=== PATIENT | female | born 1990 | race Caucasian/White ===

== ENCOUNTER 2021-03-17 16:36 | Outpatient (CLI) | payer OTHER, SELFPAY ==
[2021-03-17 17:58] LABS: Beta HCG Quantitative 122.86 mIU/ML
== END 2021-03-17 16:37 | disposition home or self-care (01) ==
LOC: ANHLAB 16:44
PROVIDERS: PCP Family Medicine; Visit Provider Obstetrics & Gynecology
DX: N92.6 Irregular menstruation, unspecified (principal)
CPT/HCPCS: 36415; 84702

== ENCOUNTER 2021-03-19 16:25 | Outpatient (CLI) | payer OTHER, SELFPAY ==
[2021-03-19 17:22] LABS: Beta HCG Quantitative 51.18 mIU/ML
== END 2021-03-19 16:26 | disposition home or self-care (01) ==
LOC: ANHLAB 16:27
PROVIDERS: PCP Family Medicine; Visit Provider Obstetrics & Gynecology
DX: O20.0 Threatened abortion (principal)
CPT/HCPCS: 36415; 84702

== ENCOUNTER 2021-03-27 16:51 | Outpatient (RCR) | payer OTHER, SELFPAY ==
[2021-03-27 17:41] LABS: Beta HCG Quantitative < 2.39 mIU/ML
== END 2021-06-25 23:59 | disposition home or self-care (01) ==
LOC: ANHLAB 16:51
PROVIDERS: PCP Family Medicine; Visit Provider Obstetrics & Gynecology
DX: O20.0 Threatened abortion (principal); Z3A.00 Weeks of gestation of pregnancy not specified
CPT/HCPCS: 36415; 84702

== ENCOUNTER 2021-11-29 09:22 | Outpatient (RCR) | payer OTHER, SELFPAY | END 2022-02-25 23:59 | disposition home or self-care (01) | LOC: ANHLAB 09:22 | PROVIDERS: PCP Family Medicine; Visit Provider Obstetrics & Gynecology | DX: O20.0 Threatened abortion (principal); Z3A.00 Weeks of gestation of pregnancy not specified | CPT/HCPCS: 36415; 84702 ==

== ENCOUNTER 2021-12-25 01:17 | Day surgery (SDC) | payer OTHER, SELFPAY ==
[2021-12-22 15:14] VITALS: BMI 32.5
--- NOTE | 2021-12-22 15:18 | PC.NURSE ---
Report to the Outpatient Waiting Room, entrance under the green pavilion located off [facility], at time 0930 on date 12/25/21. Planned Procedure Time: 1130. Time changes happen often and if your time is changed the preop area will call you the afternoon before. - You and your visitor will be asked to self-screen and do not enter if you have any COVID symptoms. - We encourage only one visitor and NO visitors under age 16 are allowed at this time. Your visitor will receive communication by the phone number that is given day of service. - The patient visitor is requested to social distance or may leave the building when not with patient due to restrictions. - A mask is required within the hospital. Patients may have clear liquids (water, carbonated beverages, clear teas, apple juice) until 3 hours prior to surgery with a maximum of 20 ounces. - No food from midnight until time of surgery Take the following medications with a SIP of water the morning of surgery: N/A Medications to discontinue per physician: N/A Date to take last dose: N/A Please no make-up, nail yi, hairspray, perfume, deodorant, or body powder the day of surgery. No jewelry (including any body piercings) or valuables the day of surgery, leave them at home. Please take a shower or bath the night before, or the morning of, surgery with an antibacterial soap. Wear comfortable, loose fitting clothing. - Jewelry must be removed prior to entering the operating room. Rings and piercings that are not removed may be cut off. - The hospital will not accept responsibility for valuables. - Please leave all valuables, including medications, at home the day of surgery. If you are going home after surgery, a licensed dump truck driver off highway must drive you home. - NO public transportation without another adult. - We recommend that an adult stay with you for 24 hours following discharge. - We also recommend that you do not drive, make important decision, drink alcoholic beverages, or take any drugs that were not prescribed by your health care provider for at least 24 hours after your discharge time. Follow any additional instructions given to you from your surgeon. If you or anyone in your household have experienced Covid symptoms in the past week, please notify your surgeon or the nurse liaison at the phone number below for possible testing. Telephone instructions given to PT - STAN GUERRA and asked if any additional questions and then verbalized understanding. Patient advised to call surgeon office or pre surgery nurse liaison [phone] if any additional questions.
--- NOTE | 2021-12-24 10:35 | P.PNAN_ITS ---
Anes - Initial Pre Proc Eval Procedure: Operation Date: 12/25/21 11:30 Proposed Procedures p Suction Dilation and Curettage - Ilir Dimas MD Date/Time: 12/24/21 10:35 Surgeon: Ilir Dimas MD Pre Op Diagnosis: Missed Ab Patient Data Age: 31 Gender: F Height: 1.75 m Weight: 99.8 kg Allergies Allergy/AdvReac Type Severity Reaction Status Date / Time No Known Allergies Allergy Verified 12/22/21 15:13 Home Medications Medication Instructions Recorded Confirmed Type No Home Medications 12/22/21 12/22/21 History Patient hx anesthesia problems: none Family hx anesthesia problems: none Results Review: All pre-operative results and documents have been reviewed as part of the pre- operative evaluation. [facility] Past Medical History Medical History Encounter for IUD insertion 01/25/18 Jessica insertion 01/13/21 Jessica removal Headache Healthy adult Migraines Surgical History Surgical History H/O right knee surgery age 13 History of orthopedic surgery age 4 broken femur repaired Family History Family History Grandparent Diabetes mellitus paternal grandmother Hypertension paternal grandmother Sibling Hypertension brother Other Breast cancer maternal aunt paternal aunt Social History Social History Smoking status: Never smoker Alcohol intake: current Drinks per week: 1 Alcohol use details: RARE Substance use: never Substance use type: does not use Living arrangements: with family Additional living arrangements comments: spouse 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 Gender identity (if verbalized by the patient): Female Sexual Orientation (if Verbalized by the Patient): Straight or Heterosexual Spiritual care concerns: No Anes - Eval Final PreProcedure Day of Procedure 12/24/21 10:35 Patient weight: obese Heart: regular rate and rhythm Lungs: clear to auscultation Airway: Mallampati scale class II Neurological: alert and oriented Last oral intake: >/= 8 hours ASA classification: II Emergent: no Anesthetic plan: proceed Anesthesia type and monitoring: general GIVS and standard monitoring Results Review: All pre-operative results and documents have been reviewed as part of the pre- operative evaluation. Informed Consent: The patient's anesthetic plan and its attendant risks and benefits were discussed with the patient/family/POA. Questions were solicited and answers provided to the satisfaction of the patient/family/POA.
--- NOTE | 2021-12-25 07:19 | WPDHPUPDATE1 ---
History and Physical Update Update Date/Time: 12/25/21 07:19 History and Physical has been reviewed, including an updated exam of the patient. There are NO changes in the patient's condition. Risks, benefits, and alternatives have been discussed and questions answered. Patient agrees to proceed with procedure.
[2021-12-25 10:28] VITALS: BP 124/82; PULSE 92; RESP 14; TEMP 36.3; O2SAT 100
[2021-12-25] MEDS: LACTATED RINGERS 1,000 ML 30 ML IV CONT (10:35)
[2021-12-25] MEDS: ACETAMINOPHEN 500 MG TABLET 1000 MG PO (10:35)
[2021-12-25] MEDS: KETOROLAC 15 MG/ML VIAL (*BKC) IV PUSH (13:27)
--- NOTE | 2021-12-25 13:28 | W.PM.PROC2 ---
Procedure Note - Detailed Date of Procedure 12/25/21 Pre-op Diagnosis First trimester missed Post-op Diagnosis Same Procedure Performed 1. Suction curettage Surgeon Ilir Dimas MD Anesthesia MAC Findings Moderate amount of retained products of conception Description of Procedure Patient prepped draped usual manner for this procedure cervix was dilated to allow a 9mm suction curette to be placed. This was placed with a moderate amount of tissue removed. Sharp curette was then undertaken with no further tissue or bleeding noted. Patient was sent to recovery room in stable condition Estimated Blood Loss 100 Drains No Packing No Pathology Yes Complications No immediate complications Condition Stable Disposition PACU [facility] Billing Surgery - Charge Forward: Surgery Billing
[2021-12-25 13:35] VITALS: BP 137/94; PULSE 83; RESP 14; O2SAT 99
[2021-12-25 14:05] VITALS: BP 133/86; PULSE 53; RESP 16; O2SAT 100
[2021-12-25] MEDS: oxyCODONE HCL (*CRX) 5 MG TAB IR PO (14:07)
[2021-12-25 14:15] VITALS: BP 123/86; PULSE 53; RESP 16; O2SAT 100
== END 2021-12-25 14:30 | disposition home or self-care (01) ==
PROVIDERS: PCP Family Medicine; Visit Provider Obstetrics & Gynecology
PROC: (CPT 59820; principal; 2021-12-25 11:30)
DX: O02.1 Missed abortion (principal); Z3A.00 Weeks of gestation of pregnancy not specified
CPT/HCPCS: 59820; 36415; 85461; 88305; A9270; J1100; J1885; J2250; J2405; J2704; J3010; J7120

== ENCOUNTER 2023-03-26 09:21 | Outpatient (CLI) | payer OTHER, SELFPAY ==
[2023-03-26 09:51] LABS: Alanine Aminotransferase 20 U/L (6-35); Albumin Level 3.6 g/dL (3.5-5.1); Alkaline Phosphatase 96 U/L (38-126); Anion Gap 5 mmol/L (8-16); Aspartate Amino Transferase 25 U/L (14-36); Bilirubin,Total 0.9 mg/dL (0.2-1.3); Blood Urea Nitrogen 7 mg/dL (7-17); Calcium 8.7 mg/dL (8.4-10.2); Carbon Dioxide 28 mmol/L (22-30); Chloride 105 mmol/L (98-107); Estimated Glomerular Filt Rate > 60; Glucose 88 mg/dL (65-110); Sodium 138 mmol/L (137-145)
[2023-03-26 10:05] LABS: Hemoglobin A1C 5.3 % (<5.7)
[2023-03-26 10:44] LABS: Free T4 Free Thyroxine 1.32 ng/mL (0.78-2.19)
[2023-03-31 07:22] LABS: Progesterone 0.5 ng/mL (***); Prolactin 8.9 ng/mL (***)
== END 2023-03-26 09:22 | disposition home or self-care (01) ==
LOC: ANHLAB 09:22
PROVIDERS: PCP Family Medicine; Visit Provider Obstetrics & Gynecology
DX: N92.6 Irregular menstruation, unspecified (principal)
CPT/HCPCS: 36415; 80053; 83036; 84144; 84146; 84439; 84443

== ENCOUNTER 2023-06-03 10:59 | Outpatient (CLI) | payer OTHER, SELFPAY | END 2023-06-03 11:00 | disposition home or self-care (01) | LOC: ANHLAB 11:21 | PROVIDERS: PCP Family Medicine; Visit Provider Obstetrics & Gynecology | DX: O20.0 Threatened abortion (principal) | CPT/HCPCS: 36415; 84702 ==

== ENCOUNTER 2023-06-07 07:14 | Outpatient (CLI) | payer OTHER, SELFPAY | END 2023-06-07 07:15 | disposition home or self-care (01) | LOC: ANHLAB 07:15 | PROVIDERS: PCP Family Medicine; Visit Provider Obstetrics & Gynecology | DX: O20.0 Threatened abortion (principal) | CPT/HCPCS: 36415; 84702 ==

== ENCOUNTER 2023-06-09 08:42 | Outpatient (CLI) | payer OTHER, SELFPAY ==
--- NOTE | ~2023-06-09 | US_ITS ---
EXAMINATION: US OB <=14 wk fetus w TV DATE: 06/09/2023 09:12 INDICATION: Threatened . TECHNIQUE: Real-time transabdominal and transvaginal pelvic ultrasound was performed. COMPARISON: None. FINDINGS: TRANSABDOMINAL ULTRASOUND: The uterus measures 8.2 x 6.0 x 4.6 cm. TRANSVAGINAL ULTRASOUND: There is an intrauterine gestational sac. A yolk sac is identified. The fet al crown rump length measures 6 mm, which correlates with an estimated gestational age of 6 weeks and 3 day(s) (+/-) 4 day(s). heart motion is identified measuring 141 beats per minute (bpm) by M- mode Doppler. The right ovary measures 2.2 x 2.4 x 2.6 cm. The left ovary measures 4.0 x 2.4 x 2.4 cm . There is no free fluid in the pelvis. IMPRESSION: 1. Single living intrauterine gestation with estimated date of delivery of 01/30/2024. Reviewed, dictated and finalized at location A. IMPRESSION: 1. Single living intrauterine gestation with estimated date of delivery of .
== END 2023-06-09 08:43 ==
LOC: GOSHIMG 08:43
PROVIDERS: PCP Obstetrics & Gynecology; Visit Provider Obstetrics & Gynecology
DX: O20.0 Threatened abortion (principal)
CPT/HCPCS: 76801; 76817

== ENCOUNTER 2023-06-29 08:17 | Outpatient (CLI) | payer OTHER, SELFPAY ==
[2023-06-29 09:51] LABS: Basophils Absolute Auto 0.1 K/mm3 (0.0-0.1); Basophils Percent Auto 0.7 % (0.2-1.2); Eosinophils Absolute Auto 0.1 K/mm3 (0-0.3); Eosinophils Percent Auto 1.7 % (0-4.4); Hematocrit 43.2 % (37.0-47.0); Hemoglobin 14.3 g/dL (12.0-15.0); Immature Granulocyte Absolute 0.03 K/mm3 (0.00-0.031); Immature Granulocyte Percent A 0.4 % (0-0.5); Lymphocytes Absolute Auto 1.68 K/mm3 (0.9-3.2); Lymphocytes Percent Auto 23.6 % (18.3-44.2); Mean Corpuscular HGB Conc 33.1 g/dl (32-36); Mean Corpuscular Hemoglobin 32.5 pg (26-34); Mean Corpuscular Volume 98.2 fl (80-100); Monocytes Absolute Auto 0.3 K/mm3 (0.1-0.6); Monocytes Percent Auto 4.1 % (2.6-8.5); Neutrophils Percent Auto 69.5 % (45.5-73.1); Platelet Count Result 312 k/mm3 (150-375); Red Cell Distribution Width 11.9 % (11.5-14.5); White Blood Count 7.1 K/mm3 (4.5-10.0)
[2023-06-29 10:08] LABS: Glucose 1 Hour PP 50gm Dose 157 mg/dL
[2023-06-29 10:38] LABS: HIV 1/2 Ab P24 Ag Result Negative (Negative)
[2023-06-29 10:58] LABS: Hepatitis B Surface Antigen Negative (Negative)
[2023-06-30 14:39] LABS: CMV IgG Antibody >10.00 U/mL
== END 2023-06-29 08:18 | disposition home or self-care (01) ==
PROVIDERS: Visit Provider Obstetrics & Gynecology
DX: N91.2 Amenorrhea, unspecified (principal)
CPT/HCPCS: 36415; 82947; 85025; 86644; 86703; 86747; 86762; 86787; 86850; 86900; 86901; 87086; 87088; 87147; 87340; G0432

== ENCOUNTER 2023-07-05 08:16 | Outpatient (CLI) | payer OTHER, SELFPAY ==
[2023-07-05 08:48] LABS: Glucose Fasting Gestational 96 mg/dL (>/=95)
[2023-07-05 10:12] LABS: Glucose 1 Hour Gest 144 mg/dL (>/=180)
[2023-07-05 11:39] LABS: Glucose 2 Hour Gest 131 mg/dL (>/= 155)
[2023-07-05 12:20] LABS: Glucose 3 Hour Gest 87 mg/dL (>/=140)
[2023-07-05 14:29] LABS: Rapid Plasma Reagin Non-Reactive (NonReactive)
== END 2023-07-05 08:17 | disposition home or self-care (01) ==
PROVIDERS: Visit Provider Obstetrics & Gynecology
DX: N91.2 Amenorrhea, unspecified (principal); R73.09 Other abnormal glucose
CPT/HCPCS: 36415; 82951; 82952; 86592

== ENCOUNTER 2023-11-09 09:19 | Outpatient (CLI) | payer OTHER, SELFPAY ==
[2023-11-09 10:43] LABS: Basophils Absolute Auto 0.1 K/mm3 (0.0-0.1); Basophils Percent Auto 0.5 % (0.2-1.2); Eosinophils Absolute Auto 0.1 K/mm3 (0-0.3); Eosinophils Percent Auto 0.7 % (0-4.4); Hemoglobin 12.8 g/dL (12.0-15.0); Immature Granulocyte Absolute 0.23 K/mm3 (0.00-0.031); Immature Granulocyte Percent A 2.5 % (0-0.5); Lymphocytes Absolute Auto 1.62 K/mm3 (0.9-3.2); Lymphocytes Percent Auto 17.3 % (18.3-44.2); Mean Corpuscular HGB Conc 32.8 g/dl (32-36); Mean Corpuscular Hemoglobin 32.9 pg (26-34); Mean Corpuscular Volume 100.3 fl (80-100); Mean Platelet Volume 9.8 fl (7.4-10.4); Monocytes Absolute Auto 0.4 K/mm3 (0.1-0.6); Monocytes Percent Auto 4.5 % (2.6-8.5); Neutrophils Percent Auto 74.5 % (45.5-73.1); Platelet Count Result 289 k/mm3 (150-375); Red Blood Count 3.89 M/mm3 (4.2-5.4); Red Cell Distribution Width 13.6 % (11.5-14.5); White Blood Count 9.4 K/mm3 (4.5-10.0)
[2023-11-09 10:52] LABS: Glucose 1 Hour PP 50gm Dose 164 mg/dL
[2023-11-09 11:32] LABS: HIV 1/2 Ab P24 Ag Result Negative (Negative)
[2023-11-09 14:53] LABS: Rapid Plasma Reagin Non-Reactive (NonReactive)
== END 2023-11-09 09:20 | disposition home or self-care (01) ==
LOC: ANHLAB 09:20
PROVIDERS: Visit Provider Obstetrics & Gynecology
DX: Z34.90 Encounter for supervision of normal pregnancy, unspecified, unspecified trimester (principal)
CPT/HCPCS: 36415; 82947; 85025; 86592; 86703; G0432

== ENCOUNTER 2023-11-22 08:33 | Outpatient (CLI) | payer OTHER, SELFPAY ==
[2023-11-22 09:09] LABS: Glucose Fasting Gestational 83 mg/dL (>/=95)
[2023-11-22 10:42] LABS: Glucose 1 Hour Gest 186 mg/dL (>/=180)
[2023-11-22 11:51] LABS: Glucose 2 Hour Gest 108 mg/dL (>/= 155)
[2023-11-22 12:49] LABS: Glucose 3 Hour Gest 51 mg/dL (>/=140)
== END 2023-11-22 08:34 | disposition home or self-care (01) ==
LOC: ANHLAB 08:34
PROVIDERS: Visit Provider Obstetrics & Gynecology
DX: R73.09 Other abnormal glucose (principal)
CPT/HCPCS: 36415; 82951; 82952

== ENCOUNTER 2024-01-20 07:33 | Inpatient (IN) | payer OTHER, SELFPAY ==
[2024-01-20] VITALS (197 sets, daily range): BP systolic 83–176; BP diastolic 43–159; PULSE 30–176; RESP 18; TEMP 36.6–37.6; O2SAT 77–100; BMI 38.0
--- NOTE | 2024-01-20 07:33 | LDADM ---
This patient, Gwen Molina, was admitted to Labor/Delivery/Recovery 106 on 01/20/24 at 07:33. Plans for labor, pain management and were discussed with patient. Patient/family oriented to hospital policies and general routines including ID bracelet, bed and alarms, visiting hours, pain management, procedures, bathroom and other care routines, personal items, smoking policy, room service/diet and guest tray routines, security routines, and visiting hours. Patient/Family are encouraged to report perceived risks to care and to ask questions if they do not understand what they are told or what they should do. See OBIX for further documentation.
[2024-01-20] MEDS: LACTATED RINGERS 1,000 ML 125 ML IV CONT ×3 (08:04→11:59)
[2024-01-20] MEDS: AMPICILLIN 2 GM/NS 100 ML 2 GM/100 ML BAG IVPB (08:05)
[2024-01-20 08:09] LABS: Basophils Absolute Auto 0.1 K/mm3 (0.0-0.1); Basophils Percent Auto 0.6 % (0.2-1.2); Eosinophils Absolute Auto 0.1 K/mm3 (0-0.3); Eosinophils Percent Auto 0.9 % (0-4.4); Hemoglobin 12.8 g/dL (12.0-15.0); Immature Granulocyte Absolute 0.33 K/mm3 (0.00-0.031); Immature Granulocyte Percent A 3.5 % (0-0.5); Lymphocytes Absolute Auto 1.98 K/mm3 (0.9-3.2); Mean Corpuscular HGB Conc 33.7 g/dl (32-36); Mean Corpuscular Hemoglobin 33.2 pg (26-34); Mean Corpuscular Volume 98.4 fl (80-100); Mean Platelet Volume 9.6 fl (7.4-10.4); Monocytes Absolute Auto 0.6 K/mm3 (0.1-0.6); Monocytes Percent Auto 5.8 % (2.6-8.5); Neutrophils Absolute Auto 6.4 K/mm3 (1.3-6.7); Neutrophils Percent Auto 68.2 % (45.5-73.1); Platelet Count Result 280 k/mm3 (150-375); Red Blood Count 3.86 M/mm3 (4.2-5.4); Red Cell Distribution Width 13.4 % (11.5-14.5); White Blood Count 9.4 K/mm3 (4.5-10.0)
[2024-01-20] MEDS: OXYTOCIN 30 UNITS/NS 500 ML 30 UNITS/500 ML BAG 6 UNITS IV CONT (08:28)
[2024-01-20 09:00] LABS: HIV 1/2 Ab P24 Ag Result Negative (Negative)
[2024-01-20] MEDS: fentaNYL CITRATE INJ (*CRX) 100 MCG/2 ML VIAL 50 MCG IV PUSH (09:48)
[2024-01-20] MEDS: AMPICILLIN 1 GM/NS 50 ML 1 GM/50 ML BAG IVPB ×2 (11:57→16:03)
[2024-01-20] MEDS: SODIUM CHLORIDE 0.9% IV 300 ML 600 ML I-UTERINE (12:57)
[2024-01-20 14:15] LABS: Rapid Plasma Reagin Non-Reactive (NonReactive)
[2024-01-20] MEDS: ONDANSETRON INJ 4 MG/2 ML VIAL IV PUSH (16:11)
[2024-01-20] MEDS: OXYTOCIN 30 UNITS/NS 500 ML 30 UNITS/500 ML BAG 125 UNITS IV CONT (18:27)
--- NOTE | 2024-01-20 18:35 | P.PCNOB_ITS ---
OB - Vaginal Delivery Note Procedure Delivery date: 01/20/24 Induction method: Per Pitocin Protocol Delivery augmentation: Rupture of Membranes Delivery monitor: External FHT and Internal Uterine Route of delivery: Episiotomy description: None Laceration Description: Perineal - 3rd Degree (Partial) Delivery repair: vicryl and chromic Specimen: No Quantitative Blood Loss (ml): 500 Anesthesia type: Epidural Disposition: Floor Complications: No immediate complications Narrative: patient prepped and draped usual manner for this procedure. Maternal expulsive efforts delivered vertex over intact perineum. Nuchal cord was noted and reduced. Rest of baby was delivered cord clamped cut and placenta delivered spontaneously. Cervix vagina vulva were inspected a partial third-degree lace ration was noted. Uterus was well contracted with minimal bleeding. The slightly rectal sphincter was approximated using 0 Vicryl in 3 interrupted sutures to approximate and this also was hemostatic. In the vagina was approximated using 2-0 chromic in a running interlocking manner and then perineum, deep suture was approximated as well, and the perineal tissue was approximated with the same 2-0 chromic. Small amount of oozing from superficial lacerations was noted and packing was placed will be removed in 30minutes. No other issues at this time an immediate postoperative condition of mother baby both excellent. [place] Baby Gestational Age by Date: 39 gender: Female Weight (pounds): 8 Weight (ounces): 2 presentation: vertex Placenta delivery description: Spontaneous Cord Vessel Description: 3 Vessels, Nuchal Cord and Reduced score one minute: 7 score five minutes: 9
--- NOTE | 2024-01-20 18:35 | WPDHPUPDATE1 ---
History and Physical Update Update Date/Time: 01/20/24 18:35 History and Physical has been reviewed, including an updated exam of the patient. There are NO changes in the patient's condition. Risks, benefits, and alternatives have been discussed and questions answered. Patient agrees to proceed with procedure.
--- NOTE | 2024-01-20 18:35 | WPDOBADMIT ---
Obstetrics - Admit Note Admission Note: record reviewed. No pertinent additions to the history and/or any subsequent changes in the physical findings that are not consistent with the expected course of the were found. Additions to the history and/or subsequent changes in the physical findings follow. None.
[2024-01-20] MEDS: ACETAMINOPHEN 325 MG TABLET 650 MG PO (19:22)
[2024-01-20] MEDS: IBUPROFEN 600 MG TABLET PO (19:22)
[2024-01-20] MEDS: BENZOCAINE 20% AER SPR (*SP) 56 GM CAN 1 SPRAY TOPICAL (21:23)
[2024-01-20] MEDS: WITCH HAZEL 40 PADS 1 PAD TOPICAL (21:23)
--- NOTE | 2024-01-20 21:29 | OBPPTRN ---
Patient transferred to post room #286 via wheelchair. Support person present. Oriented to unit, room, information board, rooming in, admission packet and security measures. Patient verbalizes understanding.
[2024-01-21] MEDS: HYDROcodone/acetaminophen (*CRX) 5-325 MG TABLET 1 TAB PO ×3 (00:50→17:03)
[2024-01-21 03:03] VITALS: BP 121/88; PULSE 78; RESP 16; TEMP 36.7; O2SAT 99
[2024-01-21] MEDS: ACETAMINOPHEN 325 MG TABLET 650 MG PO ×3 (03:03→19:43)
[2024-01-21] MEDS: IBUPROFEN 600 MG TABLET PO ×3 (03:03→17:02)
[2024-01-21 04:39] LABS: Hematocrit 34.1 % (37.0-47.0); Hemoglobin 11.4 g/dL (12.0-15.0)
[2024-01-21 08:05] VITALS: BP 113/81; PULSE 79; RESP 16; TEMP 37; O2SAT 99
--- NOTE | 2024-01-21 09:02 | PM.OBPNVD ---
OB - PN: Subj Subjective Date/time seen: 01/21/24 09:02 S: Diet ambulation tolerated. Pain well controlled. well. O:VSS Afebrile Abdomen fundus nontender Labs: Noted A: Doing well day status post vaginal delivery P: Continue routine care, home tomorrow. OB - PN: Obj Data Labs 01/21/24 02:58 Labs: Laboratory Results - last 24 hr 01/20/24 01/21/24 07:52 02:58 Hgb 11.4 L Hct 34.1 L RPR Non-reactive Blood Type O Positive Antibody Screen Negative OB - PN A/P Time Spent With Patient Time: Total time spent is greater than 50% in coordination of care (as documented) at patient's floor/unit and/or counseling patient:
[2024-01-21] MEDS: DOCUSATE SODIUM 100 MG CAPSULE PO ×2 (09:03→17:03)
[2024-01-21] MEDS: MULTIVIT/MIN/PREN/FOL AC/IRON TABLET 1 TAB PO (09:03)
--- NOTE | 2024-01-21 09:03 | PM.OBDSVD ---
DS: Admitting Diagnosis Discharge Date 01/22/2024 Admitting Diagnosis DS: Discharge Diagnosis Discharge Diagnosis (1) , delivered: Code(s): O80 - Encounter for full-term uncomplicated delivery Status: Acute OB - DS: Summary OB Procedures : None OB Procedures Intrapartum: Spontaneous Vag Delivery OB Procedures: : None Peripartum Data Laceration Description: Perineal - 3rd Degree (Partial) Episiotomy description: None Time Spent with Patient Time attestation: Total time spent providing and/or coordinating discharge services: DS: Data Data Completed and Pending Labs on day of discharge: Labs from last 24 hours 01/21/24 01/20/24 02:58 07:52 Hgb 11.4 L Hct 34.1 L RPR Non-reactive Blood Type O Positive Antibody Screen Negative Discharge Plan Discharge Discharging Clinician: Ilir Dimas Patient Disposition: Home, Self-Care Activity: as tolerated Diet: as tolerated Patient Instructions: Antibiotic Form Stand Alone Forms: General Discharge Information Follow-up/Referrals: Ilir Dimas MD [Physician] - 3 Weeks Discharge Medications: New ibuprofen 600 mg Tablet 600 mg PO Q6H PRN (Reason: Cramping) Qty: 30 0RF Continued vit-iron fum-folic ac 65 mg iron- 1 mg tablet 1 tablet PO DAILY Discontinued aspirin [Adult Low Dose Aspirin] 81 mg tablet,delayed release (DR/EC) 81 mg PO DAILY Date of admission: 01/20/24 07:33 Primary Care Provider: PHYSICIAN,BEHAVIORAL HEALTH CLINICIAN Admitting Provider: Ilir Dimas Attending physician on admission: Ilir Dimas Condition: Stable
--- NOTE | 2024-01-21 10:38 | WPDANLDPN2 ---
Anes-Prog Note L&D Date/Time: 01/21/24 10:38 Comfortable throughout: labor and delivery Neuraxial method: epidural Epidural/Spinal procedure site: clean & non-tender Neuro status: Neuro function grossly intact. Cardiovascular status: normal Respiratory status: normal Airway patency: baseline Mental status: baseline Post-Op hydration status: normal Vital Signs: Last Vital Signs Temp 37.0 C 01/21/24 08:05 Pulse 79 01/21/24 08:05 Resp 16 01/21/24 08:05 BP 113/81 01/21/24 08:05 Pulse Ox 99 01/21/24 08:05 O2 Del Method Room Air 01/20/24 08:12 Pain score (VAS): 0/10 I/O: Intake & Output 01/20/24 01/21/24 01/21/24 23:59 07:59 15:59 Intake Total 500 Output Total 550 Balance -550 500 Post-procedural complaints: none Patient feedback: Patient satisfied with anesthetic care.
[2024-01-21 12:54] VITALS: BP 103/71; PULSE 68; RESP 16; TEMP 36.4; O2SAT 99
--- NOTE | 2024-01-21 15:40 | PC.NURSE ---
[id number] Introductions were made, then consulted with patient to assess needs related to . Mother led the conversation with her?plans to feed?her infant and the?experience so far. She had planned on , was given a nipple shield previously for flat nipples. Reviewed good handwashing, cleaning the nipple shield and the appropriate way to apply and use as a tool. Discussed with mom the nipple shield precautions, possible complications associated with the risks and benefits. Reviewed practicing with a nipple shield, then without and how to protect the milk supply and production. Mother requested a breast pump early this morning and the plant operator/shift supervisor RN had set up a pump for her, mother thinks the flange size is not a good fit. Instructions given on cleaning, care, usage, that there should be no pain, pumping schedule for milk production, collection, and storage of human milk. Patient was assessed for correct placement, flange size (both nipples measured 22mm and she needs the size 27 flange) to pump for comfort and nipple stretching/stimulation for adequate milk production every 3 hours (8 times in 24 hours) 1-2 times at night if continuing to use the nipple shield or if baby does not breastfeed in order to protect her milk supply. Parents are encouraged to record the pumping schedule on the feeding sheet.?Mother voiced understanding of the education shared along with mom/baby guide and the pump measurement, flange fit handout for additional resource information. Reported to the Primary RN. [id number] We reviewed working with the , supporting breast, protecting her nipples with an optimal deep latch, good positioning, and good hand washing. Encouraged understanding the benefits of skin to skin, responding to feeding cues, frequencies of feeding 8-12 times in 24 hours (approximately 2-3 hours), duration of feedings, milk production, intake/output feeding sheet and signs of adequate intake encouraging swallowing at the breast. Reviewed positioning and alignment, supporting breast, off-centered (asymmetrical latch) and leading with the chin with big, open, wide gape. latched optimally to the [left] breast in [cross cradle] position. Education given to the mother of how to visualize the suckling (with good rocking jaw motion) swallows (dropping of the lower jaw) and how to listen for drinking at the breast (the ka sound). The infant was [able] to maintain latch without discomfort to mother using the nipple shield for 10mins and then latched baby in football to the same breast without using the nipple shield for another 30 mins. Nipple care reviewed with optimal latch, good positioning and using clean hands when touching her breast. Resources used to facilitate learning were used from the [visual handouts/ tool/mom and baby guide]. Mother voiced understanding of the education shared, to call for assistance if the infant does not latch or if there is discomfort with . Reported to the Primary RN. [id number] Per Primary RN, mother had given baby a few bottles due to baby being sleepy and not able to latch. Mother was instructed to call for assistance if needed but had not called for for assistance. Primary RN encouraged mother to call for assistance if she needs help latching and if giving a formula bottle and not or if continuously with the nipple shield that she needs to use the breast pump as directed previously to protect her milk supply.
[2024-01-21 19:38] VITALS: BP 114/76; PULSE 69; RESP 12; TEMP 36.9; O2SAT 97
[2024-01-22] MEDS: HYDROcodone/acetaminophen (*CRX) 5-325 MG TABLET 1 TAB PO (00:56)
[2024-01-22 07:15] VITALS: BP 124/95; PULSE 81; RESP 18; TEMP 36.3
[2024-01-22] MEDS: MULTIVIT/MIN/PREN/FOL AC/IRON TABLET 1 TAB PO (07:59)
[2024-01-22] MEDS: IBUPROFEN 600 MG TABLET PO (07:59)
[2024-01-22] MEDS: DOCUSATE SODIUM 100 MG CAPSULE PO (07:59)
[2024-01-22] MEDS: ACETAMINOPHEN 325 MG TABLET 650 MG PO (07:59)
--- NOTE | 2024-01-22 08:15 | PC.NURSE ---
Pt discharged to no care bed d/t baby on phototherapy.
[2024-01-24 08:37] VITALS: BP 125/81; PULSE 84; RESP 20; TEMP 36.8; O2SAT 100
== END 2024-01-22 08:15 | disposition home or self-care (01) | DRG 768 ==
LOC: ANHLDR 07:37 → ANHOB2 21:36
PROVIDERS: Admitting Provider Obstetrics & Gynecology; Visit Provider Obstetrics & Gynecology
DX: O99.824 Streptococcus B carrier state complicating childbirth (principal); Z37.0 Single live birth; Z3A.39 39 weeks gestation of pregnancy; O69.81X0 Labor and delivery complicated by cord around neck, without compression, not applicable or unspecified; O70.20 Third degree perineal laceration during delivery, unspecified
CPT/HCPCS: 36415; 85014; 85018; 85025; 86592; 86703; 86850; 86900; 86901; A9270; G0432; J0290; J2405; J2590; J2795; J3010; J7030; J7120